=== PATIENT | female | born 1940 | race Caucasian/White ===

== ENCOUNTER 2020-02-03 08:22 | Observation (INO) ==
--- NOTE | 2020-01-01 10:18 | PAT Medication Instructions ---
Medication Instructions Date of Service January 01, 2020 Home Medications alendronate 70 mg PO WK cholecalciferol (vitamin D3) [Vitamin D3] 25 mcg PO QAM cyanocobalamin (vitamin B-12) 500 mcg PO QAM enalapril maleate 10 mg PO QAM ferrous sulfate 324 mg PO QAM hydrochlorothiazide 25 mg PO QAM labetalol 200 mg PO QAM multivitamin 1 tab PO QAM omega-3 fatty acids [Fish Oil Concentrate] 1,000 mg PO QAM pravastatin 10 mg PO QAM Continue as directed alendronate 70 mg PO WK STOP taking 2 weeks before surgery (or as soon as possible if surgery is within 2 weeks) omega-3 fatty acids [Fish Oil Concentrate] 1,000 mg PO QAM DO NOT take the morning of surgery cholecalciferol (vitamin D3) [Vitamin D3] 25 mcg PO QAM cyanocobalamin (vitamin B-12) 500 mcg PO QAM enalapril maleate 10 mg PO QAM ferrous sulfate 324 mg PO QAM hydrochlorothiazide 25 mg PO QAM multivitamin 1 tab PO QAM Take morning of surgery With a small sip of water, OTHERWISE NOTHING TO EAT OR DRINK AFTER MIDNIGHT: labetalol 200 mg PO QAM pravastatin 10 mg PO QAM Other Notes If you have any questions please call us at [phone] or [phone] or [phone] or [phone]
--- NOTE | 2020-01-02 09:59 | Anesthesiology Consultation ---
Date of Service January 02, 2020 Assessment & Plan (1) Encounter for pre-operative examination: Chart Review Chart Review: Acceptable Risk for Surgery (pending preop Covid testing ) and Patient seen in Pre Admission Testing Per PAT appt on 01/02/20, resides in [facility]. Did travel to [facility] the week of 12/23/19. No other travel. No known Covid positive contacts or Covid related symptoms. Educated patient to follow up with surgeon's office regarding Covid testing. Educated on importance of self quarantining, social distancing and wearing mask in public both for the patient and household contacts. Teaching & Discussion Pre-Anesthesia Teaching/Discussion Notes: Instructed NPO after midnight before surgery,except medications with 15 cc of water. Medication instructions provided according to the PAT guidelines. History Surgery Operation Date: 02/03/20 13:00 Proposed Procedures p Right Total Knee Arthroplasty - Tee Martinez MD Height/Weight Height: 5 ft 3.5 in Weight: 69.3 kg Allergies Allergy/AdvReac Type Severity Reaction Status Date / Time No Known Allergies Allergy Verified 12/27/19 10:18 Medications Home Medications Medication Instructions Recorded Confirmed Last Taken alendronate 70 mg PO WK 12/27/19 12/27/19 Unknown cholecalciferol (vitamin D3) 25 mcg PO QAM 12/27/19 12/27/19 Unknown [Vitamin D3] cyanocobalamin (vitamin B-12) 500 mcg PO QAM 12/27/19 12/27/19 Unknown enalapril maleate 10 mg PO QAM 12/27/19 12/27/19 Unknown ferrous sulfate 324 mg PO QAM 12/27/19 12/27/19 Unknown hydrochlorothiazide 25 mg PO QAM 12/27/19 12/27/19 Unknown labetalol 200 mg PO QAM 12/27/19 12/27/19 Unknown multivitamin 1 tab PO QAM 12/27/19 12/27/19 Unknown omega-3 fatty acids [Fish Oil 1,000 mg PO QAM 12/27/19 12/27/19 Unknown Concentrate] pravastatin 10 mg PO QAM 12/27/19 12/27/19 Unknown Past Medical History Medical History (Updated 01/03/20 @ 08:44 by Romelia Resendiz PA-C) Asthma A CHILD-NO INHALERS CURRENTLY- OCC ALLERGY ISSSUES Hyperlipidemia Hypertension White blood cell abnormality HX OF LEUKOPENIA- -F/U DR MELVIN (HEME)- MOST RECENT LABS THROUGH [facility] SHOWED WBC IMPROVEMENT PER PATIENT- PREOP LABS SHOWED MINIMAL LEUKOPENIA Exercise / Class Metabolic Activity II 4-5 Yardwork/Stairs/Walk up hill (ONE FLIGHT OF STAIRS- NO CHEST PAIN OR SOB ) Past Surgical History Surgical History H/O foot surgery BENIGN MASS REMOVED History of anesthesia reaction SLOW TO WAKE UP WITH HYSTERECTOMY History of colonoscopy History of hysterectomy TOTAL PLUS APPENDECTOMY Past Anesthesia History No Hx of Anesthesia Complications (WITH EXCEPTION to SLOW TO WAKE WITH HYSTERECTOMY (SPECIFICS UNKNOWN)- PT THINKS SHE WAS POSSIBLY GIVEN TOO MUCH ANESTHESIA - HAS NOT HAD SURGERY SINCE ) and No Family Hx of Anesthesia Complications History of PONV No Hx of PONV and No Hx of Motion Sickness Social History Smoking Status: Never smoker Do You Dip or Chew Tobacco: No Hx Alcohol Use: Yes Alcohol type: wine alcohol intake frequency: holidays/special occasions only Hx Substance Use: No Review of Systems Occ cough secondary to allergies - chronic and stable Patient denies chest pain, shortness of breath, dyspnea on exertion, reflux, wh eezing, palpitations. No hx of seizures, stroke, [place], apnea/snoring. No hx of blood clots or blood tr ansfusions Physical Exam Vital Signs VITALS BP 143/74 P 60 TEMP 98.4 SP02 95% RESP 16 Constitutional no acute distress ENMT Mouth: no TMJ clicking Thyromental Distance: > or= 3.5 Finger Breadths (4.0) Mallampati Class: III Full dentures top and bottom Neck + limited neck extension (moderate ) Respiratory normal respiratory effort; no respiratory distress Auscultation: lungs clear to auscultation bilaterally; no wheezes Cardiovascular Rate/Rhythm: regular rate and regular rhythm Heart Sounds: no murmur Vessels: no carotid bruit Musculoskeletal Spine: no pain with cervical ROM Neurologic moves all extremities Psychiatric Orientation: alert Testing Laboratory Results 01/02/20 10:10 01/02/20 10:10 PT 10.6 Seconds (9.0-12.0) 01/02/20 10:10 INR 1.0 (0.9-1.1) 01/02/20 10:10 APTT 27.3 Seconds (21.0-31.0) 01/02/20 10:10 Blood Type A Negative 01/02/20 10:10 Antibody Screen NEGATIVE 01/02/20 10:10 Electrocardiogram Date: 01/02/20 Findings: + SB @ (52) Otherwise normal EKG Chest X-Ray Date: 01/02/20 Findings: + NAD
[2020-01-02 10:46] LABS: Basophils # (auto) 0.02 K/uL (0-0.2); Basophils % (auto) 0.5 %; Eosinophils % (auto) 4.9 %; Hematocrit (blood only) 38.7 % (37-47); Hemoglobin 12.9 g/dL (12.0-16.0); Immature Granulocytes # (auto) 0.01 K/uL (0.00-0.02); Immature Granulocytes % (auto) 0.2 %; Lymphocytes # (auto) 0.91 K/uL (1.2-3.4); Lymphocytes % (auto) 22.4 %; Mean Corpuscular Hemoglobin 30.5 pg (25-34); Mean Corpuscular Hgb Conc 33.3 g/dL (32-36); Mean Corpuscular Volume 91.5 fL (80-100); Mean Platelet Volume 12.4 fL (7.4-10.4); Monocytes # (auto) 0.56 K/uL (0.11-0.59); Monocytes % (auto) 13.8 %; Neutrophils # (auto) 2.36 K/uL (1.4-6.5); Neutrophils % (auto) 58.2 %; Platelet Count 145 K/uL (130-400); RDW Coefficient of Variation 13.1 % (11.5-14.5); RDW Standard Deviation 43.9 fL (36.4-46.3); Red Blood Count 4.23 M/uL (4.2-5.4); White Blood Count 4.06 K/uL (4.8-10.8)
--- NOTE | 2020-01-02 10:47 | XRay Report ---
XR chest Pre-admission PA/Lat HISTORY: Preop. COMPARISON: None. FINDINGS: The lungs are clear. Cardiac silhouette is normal in size. No pleural effusions. No pneumot horax. Old compression deformities at L1 and L2. IMPRESSION: No acute process. ACT 112: Negative or not required by law. Electronically signed by: Mason Sosa M.D. 01/02/2020 10:45 AM
[2020-01-02 10:56] LABS: Partial Thromboplastin Time 27.3 Seconds (21.0-31.0); Prothrombin Time 10.6 Seconds (9.0-12.0)
[2020-01-02 12:33] LABS: BUN Creatinine Ratio 17.7 (10-20); Calcium 9.4 mg/dl (8.5-10.1); Creatinine Clr Calc Pharmacy 45.4 ml/min; Potassium 3.6 mmol/L (3.5-5.1)
--- NOTE | 2020-01-02 13:50 | Electrocardiogram Report ---
Test Reason : Blood Pressure : / mmHG Vent. Rate : 052 BPM Atrial Rate : 052 BPM P-R Int : 202 ms QRS Dur : 090 ms QT Int : 442 ms P-R-T Axes : 077 077 070 degrees QTc Int : 411 ms Sinus bradycardia Otherwise normal ECG No previous ECGs available Confirmed by Cj Lopez ([id number]) on 01/02/2020 1:49:54 PM Referred By: Tee Martinez Confirmed By:Cj Lopez
--- NOTE | 2020-01-31 19:01 | History and Physical Report ---
DATE OF ADMISSION: 02/03/2020 CHIEF COMPLAINT: Bilateral knee pain and discomfort. HISTORY OF PRESENT ILLNESS: A 79-year-old female from [place] who presents for treatment of her knees. She has a long history of bilateral knee pain and discomfort, right side being a bit worse than the left. She has been through extensive conservative treatment by Dr. Jessica in the [place] area. She has had various shots, which have become less successful over time. She describes pain mostly anterior and medial and increased with weightbearing. She notes more stiffness as the day goes on. She has a limited walking tolerance. She has nighttime pain. She would like to proceed with knee replacement. PAST MEDICAL HISTORY: 1. Hypertension. 2. Asthma. PAST SURGICAL HISTORY: Includes hysterectomy. ALLERGIES: None. CURRENT MEDICINES: Include, 1. Labetalol 200 mg a day. 2. Enalapril 10 mg a day. 3. Hydrochlorothiazide 25 mg. 4. Pravastatin 10 mg. 5. Alendronate 70 mg once a week. SOCIAL HISTORY: A 79-year-old female. She is , with 4 children. Rare alcohol intake. Does not smoke. FAMILY HISTORY: Significant for asthma. REVIEW OF SYSTEMS: Significant for some mild asthma. Denies any chest pain or current shortness of breath. No history of DVT or PE. No known bleeding problems. PHYSICAL EXAMINATION GENERAL: Shows a pleasant elderly female. HEENT: Benign. NECK: Supple with no lymphadenopathy. LUNGS: Clear to auscultation. HEART: Has a regular rate and rhythm. ABDOMEN: Soft, nontender, nondistended. EXTREMITIES: Grossly neurovascularly intact except as follows: Examination of both knees reveals the patient ambulates independently. Walks with her knees slightly bent. She has got varus alignment to both knees and a small knee effusion. She is tender over the medial joint lines bilaterally. Range of motion is symmetric with about 10-degree of flexion contracture and bent to 120 degrees bilaterally. No pain with hip motion on either side. She is neurologically intact. X-RAYS: X-rays of both knees were reviewed. It shows advanced bilateral knee DJD. She has complete loss of medial joint space on both sides. She has subchondral sclerosis and osteophytes on the medial side of both knees. They are equal in severity. ASSESSMENT: A 79-year-old white female with advanced bilateral knee degenerative joint disease. She has failed conservative treatment and would like to proceed with knee replacement. PLAN: We are going to take her to the operating room and do a right knee replacement. The risks and benefits of right total knee replacement were explained to the patient including but not limited to DVT, PE, , infection, neurological injury, vascular injury, bleeding problem, pain, limited range of motion, stiffness, failure to relieve her symptoms, incomplete relief of symptoms, need for further surgery in the future, fracture, leg length inequality, nerve palsy, etc. The patient understands and desires to proceed. Informed consent was obtained. As far as discharge plans, she is hoping to be discharged to home. She claims her family will assist in her care. She will likely do outpatient therapy.
[~2020-02-03 08:22] MED LIST: ACETAMINOPHEN 500 MG TAB PO SCH; BUPIVACAINE 0.5 % 5 MG/1 ML PF 10ML VIAL ONE; BUPIVACAINE LIPOSOME/PF 266 MG, BUPIVACAINE/EPINEPHRINE 50 ML, SODIUM CHLORIDE 0.9% 30 ... INFIL SCH; BUPIVACAINE/EPINEPHRINE 0.25% 1:200,000 30 ML VIAL ONE; CEFAZOLIN 2000MG 2,000 MG/15 ML SYR IV SCH; FAMOTIDINE 20 MG TAB PO SCH; GABAPENTIN 300 MG CAP PO SCH; LR 500ML BOLUS, THEN 15ML/HR IV SCH; LR 60ML/HR IV SCH; METOCLOPRAMIDE HCL 10 MG TABLET PO SCH; TRANEXAMIC ACID 1,000 MG **IV Intra-op IV SCH
--- NOTE | 2020-02-03 08:36 | History & Physical Bridge Note ---
Date of Service February 03, 2020 History & Physical Bridge Note I have examined the patient, reviewed the History & Physical and in the interval since the performance of the History & Physical I have noted the following changes of clinical significance: no changes noted
[2020-02-03] MEDS ORDERED: MIDAZOLAM HCL 1 MG/ML 2ML VIAL ONE (09:12)
[2020-02-03] MEDS ORDERED: fentaNYL citrate 100 MCG/2 ML VIAL ONE (09:12)
[2020-02-03] MEDS ORDERED: BUPIVACAINE LIPOSOME 1.3% 266 MG/20 ML VIAL ONE (10:47)
[2020-02-03] MEDS ORDERED: BUPIVACAINE/EPINEPHRINE 0.25% 1:200,000 30 ML VIAL ONE (10:47)
[2020-02-03] MEDS ORDERED: BACITRACIN INJ 50,000 UNIT VIAL ONE (10:47)
[2020-02-03] MEDS ORDERED: SODIUM CHLORIDE 0.9% PF 50 ML VIAL ONE (10:47)
[2020-02-03] MEDS ORDERED: PROPOFOL IV EMULSION 10 MG/ML 20 ML VIAL IV ONE ×3 (11:15→12:01)
--- NOTE | 2020-02-03 12:42 | Post Operative Brief Note ---
PG Immediate Post Op with CF Date of Surgery February 03, 2020 Pre & Post Diagnosis Operation Date: 02/03/20 10:40 Pre-Op Diagnosis: Right Knee Degenerative Joint Disease Post-Op Diagnosis: Right Knee Degenerative Joint Disease I identified the patient and participated in the time-out.: Yes Procedure Operation Date: 02/03/20 10:40 Actual Procedures p Right Total Knee Arthroplasty(Right) - Tee Martinez MD Surgeon Tee Martinez MD Pathology Supervisor Shalom, PAC Estimated Blood Loss 50 Findings Consistent with Post-Op Diagnosis Fluids 700 cc Specimens Specimen Description: Permanent Solution: A.) Right Knee Bone and Tissue Drains Palomino Catheter (16 bulgarian palomino 10ml balloon in place. Anesthesia to monitor urine output during surgery) Anesthesia Type Spinal MAC Complications none Disposition Accompanied Patient To Recovery: No Disposition: Recovery Room
--- NOTE | 2020-02-03 12:55 | Operative Report ---
Post Operative Report Pre & Post Diagnosis Operation Date: 02/03/20 10:40 Pre-Op Diagnosis: Right Knee Degenerative Joint Disease Post-Op Diagnosis: Right Knee Degenerative Joint Disease I identified the patient and participated in the time-out.: Yes Procedure Operation Date: 02/03/20 10:40 Actual Procedures p Right Total Knee Arthroplasty(Right) - Tee Martinez MD Surgeon Tee Martinez MD Casket Upholsterer Shalom, PAC Estimated Blood Loss 50 Findings Consistent with Post-Op Diagnosis Operative findings revealed advanced right knee DJD with extensive grade 4 [id number] disease and eburnation of the medial femoral condyle medial tibial plateau. She had some less severe grade 4 changes the patellofemoral joint. The lateral compartment was fairly well-preserved. She had a moderate-sized martha nt effusion with a slight varus deformity to her knee. Fluids 700 cc. Specimens Right knee sent for pathology. Drains None. Anesthesia Type Spinal MAC Complications none Disposition Accompanied Patient To Recovery: No Disposition: Recovery Room Indications Patient is a 79-year-old female is had a long history of bilateral knee pain and discomfort right side greater than left patient been through extensive conservative care provided at a different institution. She failed all c onservative measures. X-rays reveal advanced bilateral knee DJD. The right knee was by the more than the left and she has elected to proceed with right knee replacement. Description of Procedure Operative implants consist of: 1. Biomet Vanguard size 65 right posterior stabilized femoral component. 2. Biomet size 67 tibial tray. 3. 10 mm posterior stabilized polyethylene insert. 4. 28 x 8 all poly-patella. Patient was taken to the operating room identified and placed on the operating table supine position protectors were properly padded. IV antibiotics arrived by anesthesia team a spinal anesthetic and abductor canal block had been provided in the holding area. A Perdue catheter was placed in sterile fashion. The right thigh turn was then placed in the right lower extremities and prepped and draped in usual sterile fashion. The right leg was elevated and exsanguinated with use of an Esmarch and turns placed at 300 mmHg. An anterior approach of the right knee was then performed to longitudinal incision centered over the patella. Sharp dissection was carried out through the subcutaneous tissue down the extensor mechanism. A medial parapatellar arthrotomy incision was made. Some subperiosteal dissection was carried out medially. The fat pad resected from the the patella tendon. Lateral patellofemoral ligament was released. Patella was subluxated laterally and the knee was flexed. The osteophytes were taken off the distal femur. The ACL and PCL were then released from the distal femur the tibia subluxated anteri jarad. The external tibial alignment jig was then placed in the interface the tibia and adjusted 14 mm medially. Proximal tibial cut was made to remove about 2 mm of bone from most efficient aspect of the medial tibial plateau. The tibia was then sized to a size 67. Attention drawn the femur. The distal femur was entered with a sharp drill. The intramedullary canal was suction. A right 5 degree valgus cutting guide was placed. The distal femoral cutting block was pinned and placed in the distal femur cut was made to take an additional 3 mm of bone off distal femur. The femur was then sized to a size 65. We did downsize this almost an entire size. The AP cutting block was pinned parallel to the epicondylar axis which was 5 degrees of external rotation. The anterior cut, anterior chamfer, posterior cut, posterior chamfer cuts were made. Box cutting guide was placed in just slight lateral and the box cut was made. The knee was flexed. The remnants of the medial lateral menisci were excised. The osteophytes were taken off the posterior aspect of the femur. A trial femoral component was placed. The tibial tray was pinned in maximum external rotation and the drill and stem punch we used to create defect in proximal tip for the tibial tray. The knee was then trialed and the 10 mm insert fit most appropriately. Attention was then drawn to the patella. The patella was cleaned of all soft tissues. Patella thickness measured 18 mm in thickness was cut down to 12. Size a size 28 patella. The locals were drilled for the 28 patella. The lateral osteophyte is moved. Patella button was placed. The knee was taken through range of motion the patella tracked nicely with no thumbs test. Attention drawn to placing permanent components. All trial components removed. Bone plug was placed in the distal femur limit blood loss put a double batch Palacos G cement was mixed. A Biomet Vanguard size 65 posterior stabilized femoral component, size 67 tibial tray, a 10 mm posterior box polyethylene insert, and a 28 x 8 all poly-patella were then cemented in place. Knee was brought out into full extension until cement hardened. Final cement check was then performed. The pericapsular tissues were injected with 100 cc of combination of 20 cc of Exparel, 30 cc normal saline, 50 cc of quarter percent Marcaine with epinephrine. Patient did receive 1 g tranexamic acid. The tourniquet was then let down for final tourniquet time of 52 minutes. Hemostasis was assured with use electrocautery. The wounds once again irrigated. Extensor macros then closed with combination 1 PDS suture #1 Vicryl suture in [id number] fashion. Extensor mechanism checked found to be intact with the subcutaneous tissue then closed with 2 Dexon suture in a buried interrupted fashion skin was closed skin cole. Leg was then cleaned dried a sterile dressing composed Xeroform, 4 x 4's, sterile cast padding, Enrique bandage were applied. Patient then transferred to the recovery room in stable condition. Patient tolerated procedure well and there were no complications. Real Rausch, my physician practice assistant, was present for the entire procedure. His assistance was required and essential to proper patient positioning, prepping and draping, surgical exposure, performing the technical details of the operation, placement of the implants, closure of the wound, and placement of the sterile bandage. I attest to the content of the Intraoperative Record and any orders documented therein. Any exceptions are noted below.
--- NOTE | 2020-02-03 13:08 | XRay Report ---
TWO VIEWS RIGHT KNEE CLINICAL HISTORY: Postoperative examination. FINDINGS: AP and crosstable lateral portable views of the right knee are obtained. A right knee arthr oplasty is in near anatomic alignment. There has been undersurface remodeling of the patella. No acut e fracture is seen. There are expected postoperative changes around the knee including skin clips, so ft tissue edema, and subcutaneous gas. IMPRESSION: Expected postoperative changes status post right knee arthroplasty. No acute fracture is seen. ACT 112: Negative or not required by law. Electronically signed by: Jonathon Hanson M.D. 02/03/2020 1:06 PM
[2020-02-03] MEDS ORDERED: ONDANSETRON INJ 2 MG/ML 2 ML VIAL IV PRN ×2 (13:24→13:53)
[2020-02-03] MEDS ORDERED: ePHEDrine sulfate 50 MG/ML AMP IV PRN (13:24)
[2020-02-03] MEDS ORDERED: fentaNYL citrate 100 MCG/2 ML VIAL IV PRN (13:24)
[2020-02-03] MEDS ORDERED: ATROPINE SULFATE 0.1 MG/ML 10ML SYR IV PRN (13:24)
[2020-02-03] MEDS ORDERED: PROMETHAZINE HCL 12.5 MG in SODIUM CHLORIDE 0.9% 50 ML IV PRN (13:24)
--- NOTE | 2020-02-03 13:24 | Anesthesiology Progress Note ---
Date of Service February 03, 2020 Anesthesia Post Procedure Vital Signs Vital Signs: Temp Pulse Pulse Resp BP BP Pulse Ox 02/03/20 13:15 48 L 12 146/72 H 100 02/03/20 13:05 50 L 16 129/62 100 02/03/20 12:55 63 14 139/72 100 02/03/20 12:47 36.0 C L 61 20 122/68 100 02/03/20 09:35 56 L 18 138/69 99 02/03/20 09:04 36.5 C 61 20 159/76 H 99 Pain Intensity Right Knee: Pain Intensity: 0 Transfer of Care Handoff Completed per policy Notes Mental Status: alert / awake / arousable and participated in evaluation Patient Amnestic to Procedure: Yes Nausea / Vomiting: adequately controlled Pain: adequately controlled Airway Patency, RR, SpO2: stable & adequate BP & HR: stable & adequate Hydration State: stable & adequate Anesthetic Complications: no major complications apparent and Pt Satisfied with anesthetic care
[2020-02-03] MEDS ORDERED: MAGNESIUM HYDROXIDE SUSP 30 ML UDC PO PRN (13:53)
[2020-02-03] MEDS ORDERED: ALUMINUM/MAGNESIUM SUSP 30 ML UDC PO PRN (13:53)
[2020-02-03] MEDS ORDERED: HYDROmorphone INJ 0.5 MG/0.5 ML SYR IV PRN (13:53)
[2020-02-03] MEDS ORDERED: NALOXONE HCL 0.4 MG/1 ML VIAL/CARP IV PRN (13:53)
[2020-02-03] MEDS ORDERED: TRAMADOL HCL 50 MG TABLET PO PRN (13:53)
[2020-02-03] MEDS ORDERED: METOCLOPRAMIDE HCL INJ 5 MG/ML 2 ML VIAL IV PRN (13:53)
[2020-02-03] MEDS ORDERED: bisacodyL 10 MG SUPP PR PRN (13:53)
[2020-02-03] MEDS: ACETAMINOPHEN 500 MG TAB PO SCH ×2 (14:10→21:37)
[2020-02-03] MEDS: SODIUM CHLORIDE 0.9% 1000ML 1,000 ML IV SCH (14:12)
[2020-02-03] MEDS: KETOROLAC TROMETHAMINE 15 MG/ML VIAL IV SCH ×2 (15:47→21:37)
[2020-02-03] MEDS: FERROUS GLUCONATE 324 MG TAB PO SCH (17:30)
[2020-02-03] MEDS: ASCORBIC ACID 500 MG TAB PO SCH (17:30)
[2020-02-03] MEDS: CEFAZOLIN 1000MG 1,000 MG/7.5 ML SYR IV SCH (18:36)
[2020-02-03] MEDS ORDERED: TRANEXAMIC ACID / 0.7% NACL 1,000 MG/100 ML BAG IV SCH (18:45)
[2020-02-03] MEDS: ASPIRIN 81 MG ECTAB PO SCH (20:19)
[2020-02-03] MEDS: SENNA 8.6 MG TAB PO SCH (20:19)
[2020-02-03] MEDS: DOCUSATE SODIUM 100 MG CAP PO SCH (20:19)
[2020-02-04] MEDS: CEFAZOLIN 1000MG 1,000 MG/7.5 ML SYR IV SCH (01:11)
[2020-02-04] MEDS: SODIUM CHLORIDE 0.9% 1000ML 1,000 ML IV SCH (01:46)
[2020-02-04] MEDS: KETOROLAC TROMETHAMINE 15 MG/ML VIAL IV SCH ×4 (05:23→21:15)
[2020-02-04] MEDS: ACETAMINOPHEN 500 MG TAB PO SCH ×3 (05:24→21:16)
[2020-02-04 06:13] LABS: BUN Creatinine Ratio 15.8 (10-20); Calcium 8.4 mg/dl (8.5-10.1); Creatinine Clr Calc Pharmacy 42.4 ml/min; Est GFR (African American) 60.6; Est GFR (Non-African American) 52.3; Potassium 3.4 mmol/L (3.5-5.1)
[2020-02-04 06:15] LABS: Hematocrit (blood only) 34.9 % (37-47); Hemoglobin 11.6 g/dL (12.0-16.0); Mean Corpuscular Hemoglobin 30.2 pg (25-34); Mean Corpuscular Hgb Conc 33.2 g/dL (32-36); Mean Corpuscular Volume 90.9 fL (80-100); Platelet Count 122 K/uL (130-400); Platelet Estimate Decreased (Normal); RDW Coefficient of Variation 12.9 % (11.5-14.5); RDW Standard Deviation 43.1 fL (36.4-46.3); Red Blood Count 3.84 M/uL (4.2-5.4); White Blood Count 7.35 K/uL (4.8-10.8)
--- NOTE | 2020-02-04 08:16 | Anesthesiology Progress Note ---
Date of Service February 04, 2020 Anesthesia Post Procedure Vital Signs Vital Signs: Temp Pulse Pulse Resp BP BP Pulse Ox 02/04/20 07:24 37 C 78 16 166/92 H 97 02/04/20 04:00 37.2 C 78 16 150/78 H 97 02/03/20 23:00 37.6 C H 80 16 139/74 96 02/03/20 21:26 155/84 H 02/03/20 20:01 36.8 C 84 17 173/92 H 96 02/03/20 16:47 36.6 C 67 18 164/80 H 99 02/03/20 15:38 36.5 C 56 L 18 133/74 99 02/03/20 14:41 36.6 C 59 L 18 165/79 H 98 02/03/20 14:08 51 L 130/66 100 02/03/20 13:40 36.5 C 50 L 16 129/67 99 02/03/20 13:25 36.3 C L 50 L 12 143/68 H 100 02/03/20 13:15 48 L 12 146/72 H 100 02/03/20 13:05 50 L 16 129/62 100 02/03/20 12:55 63 14 139/72 100 02/03/20 12:47 36.0 C L 61 20 122/68 100 02/03/20 09:35 56 L 18 138/69 99 02/03/20 09:04 36.5 C 61 20 159/76 H 99 Pain Intensity Right Knee: Pain Intensity: 5 Notes Mental Status: alert / awake / arousable and participated in evaluation Nausea / Vomiting: adequately controlled Pain: adequately controlled Airway Patency, RR, SpO2: stable & adequate BP & HR: stable & adequate Hydration State: stable & adequate Neuraxial Anesthesia: was administered and sensory block resolved Anesthetic Complications: no major complications apparent and Pt Satisfied with anesthetic care
[2020-02-04] MEDS: ASCORBIC ACID 500 MG TAB PO SCH ×2 (08:55→17:36)
[2020-02-04] MEDS: CHOLECALCIFEROL 1,000 UNITS 25 MCG TAB PO SCH (08:55)
[2020-02-04] MEDS: CYANOCOBALAMIN 500 MCG TABLET (VITAMIN B-12) PO SCH (08:55)
[2020-02-04] MEDS: ASPIRIN 81 MG ECTAB PO SCH ×2 (08:55→20:39)
[2020-02-04] MEDS: hydroCHLOROthiazide 25 MG TAB PO SCH (08:56)
[2020-02-04] MEDS: MULTIVITAMIN TAB PO SCH (08:56)
[2020-02-04] MEDS: DOCUSATE SODIUM 100 MG CAP PO SCH ×2 (08:56→20:38)
[2020-02-04] MEDS: FERROUS GLUCONATE 324 MG TAB PO SCH ×2 (08:56→17:36)
[2020-02-04] MEDS: OMEGA-3 (PURIFIED FISH OIL) 1 GM CAP PO SCH (08:56)
[2020-02-04] MEDS: LABETALOL HCL 200 MG TAB PO SCH (08:56)
[2020-02-04] MEDS: PRAVASTATIN SOD 10 MG TAB PO SCH (08:56)
[2020-02-04] MEDS: ENALAPRIL MALEATE 10 MG TAB PO SCH (08:56)
[2020-02-04] MEDS ORDERED: MULTIVITAMIN TAB PO SCH (09:00)
[2020-02-04] MEDS ORDERED: POTASSIUM CHLORIDE 20 MEQ TABCR PO ONE ×2 (13:46→18:00)
--- NOTE | 2020-02-04 14:06 | Progress Notes ---
DATE: 02/04/2020 SUBJECTIVE: A 79-year-old white female postop day 1 from a right knee replacement. She is doing pretty well. Pain has been controlled. No chest pain or shortness of breath. Not feeling dizzy or lightheaded. OBJECTIVE: VITAL SIGNS: Temperature is 36.6. Vital signs stable. GENERAL: Shows a pleasant elderly female. She is sitting up in bed, looks reasonably comfortable. She is talking to her . LUNGS: Clear to auscultation. HEART: Has a regular rate and rhythm. ABDOMEN: Soft, nontender, nondistended. EXTREMITIES: Grossly neurovascularly intact except as follows. Examination of the right lower extremity reveals the dressing to be clean, dry and intact. She can dorsiflex and plantarflex her foot appropriately. She is neurologically intact. LABORATORY DATA: Hemoglobin 11.6. Hematocrit 34.9. Electrolytes are stable. Potassium slightly low at 3.4. ASSESSMENT: A 79-year-old white female postop day 1 from a right knee replacement, doing pretty well. Pain is controlled. She is neurologically intact. Potassium is a little bit low and we will supplement this. PLAN: 1. DVT prophylaxis including thigh-high TEDs, SCDs, and aspirin twice a day. 2. PT/OT. Weight bear as tolerated. Right total knee protocol. 3. Pain control, doing well with current pain regimen. 4. Hypokalemia. We will supplement her potassium today. 5. Disposition: Plan to discharge to home and she is going to do outpatient therapy. She has family members that will assist in her care.
[2020-02-04] MEDS: SENNA 8.6 MG TAB PO SCH (20:38)
[2020-02-05] MEDS: KETOROLAC TROMETHAMINE 15 MG/ML VIAL IV SCH ×2 (04:32→08:33)
[2020-02-05] MEDS: ACETAMINOPHEN 500 MG TAB PO SCH (04:32)
[2020-02-05 07:10] LABS: BUN Creatinine Ratio 13.6 (10-20); Calcium 8.9 mg/dl (8.5-10.1); Est GFR (African American) 66.9; Est GFR (Non-African American) 57.7; Potassium 3.9 mmol/L (3.5-5.1)
[2020-02-05] MEDS: FERROUS GLUCONATE 324 MG TAB PO SCH (08:29)
[2020-02-05] MEDS: PRAVASTATIN SOD 10 MG TAB PO SCH (08:29)
[2020-02-05] MEDS: ENALAPRIL MALEATE 10 MG TAB PO SCH (08:30)
[2020-02-05] MEDS: MULTIVITAMIN TAB PO SCH (08:30)
[2020-02-05] MEDS: OMEGA-3 (PURIFIED FISH OIL) 1 GM CAP PO SCH (08:30)
[2020-02-05] MEDS: CHOLECALCIFEROL 1,000 UNITS 25 MCG TAB PO SCH (08:30)
[2020-02-05] MEDS: hydroCHLOROthiazide 25 MG TAB PO SCH (08:30)
[2020-02-05] MEDS: ASPIRIN 81 MG ECTAB PO SCH (08:30)
[2020-02-05] MEDS: ASCORBIC ACID 500 MG TAB PO SCH (08:30)
[2020-02-05] MEDS: CYANOCOBALAMIN 500 MCG TABLET (VITAMIN B-12) PO SCH (08:30)
[2020-02-05] MEDS: DOCUSATE SODIUM 100 MG CAP PO SCH (08:30)
[2020-02-05] MEDS: LABETALOL HCL 200 MG TAB PO SCH (08:30)
--- NOTE | 2020-02-05 09:18 | Progress Notes ---
DATE: 02/05/2020 SUBJECTIVE: A 79-year-old white female postop day 2 from a right knee replacement. She is doing pretty well. Pain has been controlled. No chest pain or shortness of breath. Therapy has gone reasonably well. OBJECTIVE: VITAL SIGNS: Temperature 36.9. Vital signs stable. GENERAL: Shows a pleasant elderly female. She is sitting up in her bedside chair, looks pretty comfortable this morning. EXTREMITIES: Examination of the right leg reveals the dressing to be in place. Just a little bit of bloody drainage inferiorly. Calf is soft and supple. She is neurologically intact. ASSESSMENT: A 79-year-old white female postop day 2 from a right knee replacement, doing reasonably well. PLAN: 1. DVT prophylaxis including thigh-high TEDs, SCDs, and aspirin twice a day. 2. PT/OT. Weight bear as tolerated. Right total knee protocol. 3. Pain control, doing well with current pain regimen. 4. Disposition: Plan to discharge to home with some home health and her family's assistance.
--- NOTE | 2020-02-10 15:59 | Discharge Summary ---
Date of Service February 10, 2020 Admission HPI Per Admitting Provider Documented in the H & P Admission Exam (Per Admitting) Constitutional Documented in the H & P Discharge Data Consultations 02/03/20 13:53 Consult Case Management - Discharge Planning Routine Procedures Performed Operation Date: 02/03/20 10:40 Actual Procedures p Right Total Knee Arthroplasty(Right) - Tee Martinez MD Hospital Course (1) Status post total right knee replacement: This patient is a 79 year old female admitted on 02/03/20 and underwent total knee arthroplasty. She tolerated the procedure well and there were no complications. Transferred to the PACU post op and later to the orthopedic floor for further care. She was given ancef for antibiotic prophylaxis. She was also given MYKEL stockings, SCDs, and aspirin for DVT prophylaxis. Hemoglobin, hematocrit, and vital signs were monitored during her hospital stay and remaind stable. Did not require any blood transfusions. There were no complications during her hospital stay. By post op day #2 the patient was tolerating a regular diet, pain was reasonably controlled with oral pain medicine, and she was participating in physical therapy. On post op day #2 the patient was discharged home and set up with home health care. She was given printed discharge instructions including prescriptions for extra strength tylenol, aspirin, and tramadol. Continue physical therapy, weight bearing as tolerated. Continue MYKEL stockings. Follow up approximately 2 weeks post op or sooner if there are problems or concerns. Coding Level of Care Code None Diagnoses Status post total right knee replacement Z96.651
== END 2020-02-05 12:45 | disposition home health service (06) ==
LOC: ASU 08:22 → 3E 08:22